=== PATIENT | female | born 2000 | race Hispanic/Latino ===

== ENCOUNTER 2024-04-29 20:00 | Inpatient (IN) | payer BC ==
[2024-04-29 21:00] VITALS: BMI 51.7
[2024-04-29] MEDS ORDERED: HYDROcodone/Acetaminophen 5/325 mg Tablet PO PRN ×2 (21:00)
[2024-04-29] MEDS ORDERED: Lidocaine 1% (PF) 30 ML VIAL SC PRN (21:00)
[2024-04-29] MEDS ORDERED: fentaNYL 50 mcg/mL 1 mL Vial SLOW IVP PRN (21:00)
[2024-04-29] MEDS ORDERED: Promethazine HCl 25 MG/ML VIAL IM PRN (21:00)
[2024-04-29] MEDS ORDERED: Ondansetron PF 4 MG/2 ML Vial IVP PRN (21:00)
[2024-04-29] MEDS ORDERED: Misoprostol 100 MCG TAB VAG SCH (21:00)
[2024-04-29] MEDS ORDERED: Oxytocin 30 units/NS 500 ML 500 ML IV SCH ×3 (21:00)
[2024-04-29] MEDS ORDERED: Ibuprofen 800 MG TAB PO PRN (21:00)
[2024-04-29 21:52] LABS: Hematocrit 31.7 % (34.9-44.5); Hemoglobin 10.9 g/dL (12.0-15.5); Mean Corpuscular HGB CONC 34.4 g/dL (32.0-36.0); Mean Corpuscular Hemoglobin 28.8 pg (27.0-33.0); Mean Corpuscular Volume 83.6 fL (81.6-98.3); Mean Platelet Volume 10.6 fL (7.4-10.4); Platelet Count 331 10x3/uL (150-450); RBC Distribution Width 17.1 % (11.5-14.5); Red Blood Cell (RBC) Count 3.79 10x6/uL (3.90-5.03); White Blood Cell (WBC) Count 12.4 10x3/uL (3.5-10.5)
[2024-04-29 22:22] LABS: Syphilis Antibody Nonreactive (Nonreactive); Syphilis Antibody Index 0.02 S/CO (<1.00 Non-Reactive)
[2024-04-29 22:23] LABS: HBsAg Index 0.25 S/CO (0-0.99); Hep B Surf Ag - L&D Non-Reactive S/CO (NonReactive)
[2024-04-29 22:47] LABS: ALT (SGPT) 7 U/L (8-55); AST (SGOT) 7 U/L (5-34); Albumin Less than 1.0 g/dL (3.5-5.0); Alkaline Phosphatase 113 U/L (40-110); Anion Gap 11 mmol/L (10-20); BUN (Urea Nitrogen) 7 mg/dL (7.0-18.7); Bilirubin, Total Less than 0.2 mg/dL (0.2-1.2); Calc. Creatinine Clearance 374 mL/min (70-130); Calcium 7.9 mg/dL (7.8-10.44); Carbon Dioxide 21 mmol/L (22-29); Chloride 105 mmol/L (98-107); Estimated GFR 131; Glucose 87 mg/dL (70-105); Potassium 3.5 mmol/L (3.5-5.1); Sodium 133 mmol/L (136-145)
[2024-04-30] MEDS: Misoprostol 100 MCG TAB VAG SCH (07:40)
[2024-04-30] MEDS: hydrALAZINE 20 MG/ML VIAL SLOW IVP PRN ×2 (09:24→10:06)
[2024-04-30] MEDS ORDERED: Calcium Gluc 4.6 MEQ/10 ML (100 MG/ML) SLOW IVP PRN (09:49)
[2024-04-30] MEDS ORDERED: hydrALAZINE 20 MG/ML VIAL SLOW IVP PRN ×2 (09:49→17:13)
[2024-04-30] MEDS ORDERED: Lorazepam 2 MG/ML VIAL SLOW IVP PRN (09:49)
[2024-04-30] MEDS: Lactated Ringer's 1,000 ML IV SCH (09:50)
[2024-04-30] MEDS: Magnesium Sulfate 20 gm/500 ml 20 GM/500 ML BAG IVPB SCH (09:50)
[2024-04-30] MEDS: Labetalol HCl 100 MG/20 ML VIAL SLOW IVP PRN ×2 (11:07→14:13)
[2024-04-30] MEDS ORDERED: Bicitra 30 ML UDCUP PO PRN (14:47)
[2024-04-30] MEDS: CEFAZOLIN 3 GM in Sodium Chloride 0.9% 100 ML IVPB SCH (15:26)
[2024-04-30] MEDS: Famotidine/PF 20 mg/2ml Vial SLOW IVP PRN (15:26)
[2024-04-30] MEDS ORDERED: Ondansetron PF 4 MG/2 ML Vial IVP PRN ×3 (17:13→17:32)
[2024-04-30] MEDS ORDERED: Lanolin Ointment 7 GM TUBE TOP PRN (17:13)
[2024-04-30] MEDS ORDERED: diphenhydrAMINE 25 MG CAP PO PRN (17:13)
[2024-04-30] MEDS ORDERED: HYDROcodone/Acetaminophen 5/325 mg Tablet PO PRN ×2 (17:13)
[2024-04-30] MEDS ORDERED: Bisacodyl 10 MG SUPP PR PRN (17:13)
[2024-04-30] MEDS ORDERED: Simethicone Chewable 80 MG TAB PO PRN (17:13)
[2024-04-30] MEDS ORDERED: Acetaminophen 325 MG TAB PO PRN (17:13)
[2024-04-30] MEDS ORDERED: Zolpidem Tartrate 5 MG TAB PO PRN (17:13)
[2024-04-30] MEDS ORDERED: Oxytocin 30 units/NS 500 ML 500 ML IV SCH (17:15)
[2024-04-30] MEDS ORDERED: Morphine 4 MG/ML VIAL SLOW IVP PRN (17:32)
[2024-04-30] MEDS ORDERED: Meperidine HCl/PF 25 MG (1 mL) VIAL SLOW IVP PRN (17:32)
[2024-04-30] MEDS ORDERED: Moisturizing Cream (Eucerin) 113 GM JAR TOP PRN (17:32)
[2024-04-30] MEDS ORDERED: Promethazine HCl 25 MG/ML VIAL IM PRN (17:32)
[2024-04-30] MEDS ORDERED: fentaNYL 50 mcg/mL 1 mL Vial SLOW IVP PRN (17:32)
[2024-04-30] MEDS ORDERED: Naloxone HCl 0.4 mg/ml Vial IV PRN (17:32)
[2024-04-30] MEDS ORDERED: diphenhydrAMINE 50 MG/ML VIAL IVP PRN (17:32)
[2024-04-30] MEDS ORDERED: Naloxone HCl 0.4 mg/ml Vial IVP PRN ×2 (17:32)
[2024-04-30] MEDS ORDERED: Communication Order-Pharmacy FS SCH (17:45)
[2024-05-01] MEDS: Docusate 100 MG CAP PO SCH ×2 (00:07→20:05)
[2024-05-01] MEDS: Ferrous Sulfate 325 MG TAB PO SCH ×2 (00:07→20:45)
[2024-05-01] MEDS: Morphine 4 MG/ML VIAL SLOW IVP PRN (01:05)
[2024-05-01 04:31] LABS: Hematocrit 29.4 % (34.9-44.5); Hemoglobin 9.6 g/dL (12.0-15.5); Mean Corpuscular HGB CONC 32.7 g/dL (32.0-36.0); Mean Corpuscular Hemoglobin 28.1 pg (27.0-33.0); Mean Platelet Volume 10.2 fL (7.4-10.4); Platelet Count 282 10x3/uL (150-450); RBC Distribution Width 17.1 % (11.5-14.5); Red Blood Cell (RBC) Count 3.42 10x6/uL (3.90-5.03); White Blood Cell (WBC) Count 11.9 10x3/uL (3.5-10.5)
[2024-05-01 04:52] LABS: ALT (SGPT) 10 U/L (8-55); AST (SGOT) 9 U/L (5-34); Albumin Less than 1.0 g/dL (3.5-5.0); Alkaline Phosphatase 109 U/L (40-110); Anion Gap 11 mmol/L (10-20); BUN (Urea Nitrogen) 6 mg/dL (7.0-18.7); Bilirubin, Total Less than 0.2 mg/dL (0.2-1.2); Calc. Creatinine Clearance 435 mL/min (70-130); Calcium 7.8 mg/dL (7.8-10.44); Carbon Dioxide 19 mmol/L (22-29); Chloride 106 mmol/L (98-107); Estimated GFR 136; Glucose 112 mg/dL (70-105); Potassium 3.7 mmol/L (3.5-5.1); Protein, Total 4.5 g/dL (6.0-8.3); Sodium 132 mmol/L (136-145)
[2024-05-01] MEDS ORDERED: HYDROcodone/Acetaminophen 5/325 mg Tablet PO PRN ×2 (05:45→17:38)
[2024-05-01] MEDS ORDERED: Ibuprofen 800 MG TAB PO SCH (06:00)
[2024-05-01] MEDS: Enoxaparin 40 MG (0.4 mL) SYRINGE SC SCH (06:35)
[2024-05-01] MEDS: Furosemide 20 MG TAB PO SCH (09:01)
[2024-05-01] MEDS: Prenatal Vitamin 1 TAB PO SCH (09:01)
[2024-05-01] MEDS: NIFEdipine XL 30 MG ER.TAB PO SCH (09:10)
[2024-05-01] MEDS: Dexamethasone 10 MG/ML VIAL ONE (11:00)
[2024-05-01] MEDS: Ondansetron PF 4 MG/2 ML Vial ONE (11:01)
[2024-05-01] MEDS: Morphine PF 10 MG/10 ML VIAL ONE (11:01)
[2024-05-01] MEDS: Oxytocin 10 UNITS/ML VIAL ONE ×2 (11:01→11:03)
[2024-05-01] MEDS: Promethazine HCl 25 MG/ML VIAL ONE (11:01)
[2024-05-01] MEDS: Carboprost 250 MCG/ML AMP ONE (11:02)
[2024-05-01] MEDS: Erythromycin Base 0.5% Oint 1 GM TUBE ONE (11:02)
[2024-05-01] MEDS: Misoprostol 200 MCG TAB ONE (11:02)
[2024-05-01] MEDS: Phytonadione Neonatal 1 MG/0.5 ML AMP ONE (11:02)
[2024-05-01] MEDS: Tranexamic Acid 1,000 MG/10 ML VIAL ONE (11:02)
[2024-05-01] MEDS: Dexmedetomidine 200 MCG/2 ML VIAL ONE ×2 (11:02→11:04)
[2024-05-01] MEDS: Metoclopramide HCl 10 MG (2 mL) VIAL ONE (11:03)
[2024-05-01] MEDS: ePHEDrine Sulfate 50 MG/10 ML VIAL ONE (11:03)
[2024-05-01] MEDS: Fentanyl 250 MCG/5 ML VIAL ONE (11:03)
[2024-05-01] MEDS: PHENYLEPHRINE-NS 100 MCG/ML 10 ML SYRINGE ONE (11:04)
[2024-05-01] MEDS: PROPOFOL 0 ML ONE (11:04)
[2024-05-01] MEDS: fentaNYL 50 mcg/mL 1 mL Vial ONE (11:04)
[2024-05-01] MEDS: HYDROcodone/Acetaminophen 5/325 mg Tablet PO PRN ×2 (13:44→20:10)
[2024-05-01] MEDS ORDERED: hydrALAZINE 20 MG/ML VIAL SLOW IVP PRN (17:38)
[2024-05-01] MEDS ORDERED: Bisacodyl 10 MG SUPP PR PRN (17:38)
[2024-05-01] MEDS ORDERED: Boostrix 0.5 ML (Tdap) VIAL (>/=7 yrs of age) IM ONE (17:38)
[2024-05-01] MEDS ORDERED: diphenhydrAMINE 25 MG CAP PO PRN (17:38)
[2024-05-01] MEDS ORDERED: Acetaminophen 325 MG TAB PO PRN (17:38)
[2024-05-01] MEDS ORDERED: Promethazine HCl 25 MG/ML VIAL IM PRN (17:38)
[2024-05-01] MEDS ORDERED: Lanolin Ointment 7 GM TUBE TOP PRN (17:38)
[2024-05-01] MEDS ORDERED: Ondansetron PF 4 MG/2 ML Vial IVP PRN (17:38)
[2024-05-01] MEDS: Ibuprofen 800 MG TAB PO SCH (20:05)
[2024-05-01] MEDS: Simethicone Chewable 80 MG TAB PO PRN (20:18)
[2024-05-02] MEDS ORDERED: Ibuprofen 800 MG TAB PO SCH (02:00)
[2024-05-02] MEDS: Ibuprofen 800 MG TAB PO SCH (04:37)
[2024-05-02] MEDS: Prenatal Vitamin 1 TAB PO SCH (08:31)
[2024-05-02] MEDS: Enoxaparin 40 MG (0.4 mL) SYRINGE SC SCH (08:31)
[2024-05-02] MEDS ORDERED: Enoxaparin 40 MG (0.4 mL) SYRINGE SC SCH (09:00)
[2024-05-02] MEDS: Magnesium Sulfate 20 gm/500 ml 20 GM/500 ML BAG ONE (19:32)
[2024-05-02] MEDS: Hepatitis B Vaccine 10 MCG/0.5 ML SYR ONE (19:32)
[2024-05-02] MEDS: Misoprostol 100 MCG TAB ONE (19:35)
[2024-05-02] MEDS: Boostrix 0.5 ML (Tdap) VIAL (>/=7 yrs of age) IM ONE (19:36)
[2024-05-03 08:02] VITALS: BP 131/71; TEMP 97.8
[2024-05-03] MEDS: NIFEdipine XL 30 MG ER.TAB PO SCH (08:45)
== END 2024-05-03 12:10 | disposition home or self-care (01) | DRG 787 ==
LOC: CSHLD 20:00 → CSHPP 05-01 18:34
PROVIDERS: ADMIT Obstetrics & Gynecology; ATTEND Obstetrics & Gynecology
PROC: 10D00Z1 Extraction of Products of Conception, Low, Open Approach (ICD-10-PCS; principal; 2024-04-30)
DX: O41.03X0 Oligohydramnios, third trimester, not applicable or unspecified (principal); N04.9 Nephrotic syndrome with unspecified morphologic changes; R18.8 Other ascites; Z3A.36 36 weeks gestation of pregnancy; Z37.0 Single live birth; O99.214 Obesity complicating childbirth; O13.4 Gestational [pregnancy-induced] hypertension without significant proteinuria, complicating childbirth; Z79.899 Other long term (current) drug therapy; Z79.01 Long term (current) use of anticoagulants; O99.892 Other specified diseases and conditions complicating childbirth; E66.01 Morbid (severe) obesity due to excess calories
CPT/HCPCS: 36415; 51702; 80053; 85027; 86780; 86850; 86900; 86901; 87340; 88307; J0360; J1100; J1650; J2272; J2274; J2405; J2550; J2590; J2704; J2765; J3010; J3475; J3490; J7120

== ENCOUNTER 2024-06-10 23:25 | Inpatient (IN) | payer BC ==
[2024-06-11 00:08] LABS: #Basophils 0.04 10x3/uL (0.0-0.2); #Eosinophils 0.19 10x3/uL (0.0-0.5); #Monocytes 0.33 10x3/uL (0.0-1.1); #Neutrophils 10.86 10x3/uL (1.5-8.4); %Basophils 0.3 % (0.0-2.0); %Eosinophils 1.4 % (0.0-6.0); %Lymphocytes 17.2 % (18.0-47.0); %Monocytes 2.4 % (0.0-10.0); %Neutrophils 78.4 % (40.0-75.0); Hematocrit 37.2 % (34.9-44.5); Hemoglobin 11.7 g/dL (12.0-15.5); Mean Corpuscular HGB CONC 31.5 g/dL (32.0-36.0); Mean Corpuscular Hemoglobin 27.4 pg (27.0-33.0); Mean Corpuscular Volume 87.1 fL (81.6-98.3); Mean Platelet Volume 10.4 fL (7.4-10.4); Platelet Count 436 10x3/uL (150-450); RBC Distribution Width 14.6 % (11.5-14.5); Red Blood Cell (RBC) Count 4.27 10x6/uL (3.90-5.03); White Blood Cell (WBC) Count 13.8 10x3/uL (3.5-10.5)
[2024-06-11] MEDS ORDERED: Milk Of Magnesia 30 ML UDCUP ONE (00:09)
[2024-06-11 00:21] LABS: ALT (SGPT) 18 U/L (8-55); AST (SGOT) 41 U/L (5-34); Albumin 1.3 g/dL (3.5-5.0); Alkaline Phosphatase 209 U/L (40-110); Anion Gap 15 mmol/L (10-20); BUN (Urea Nitrogen) 10 mg/dL (7.0-18.7); Bilirubin, Total 0.2 mg/dL (0.2-1.2); Calc. Creatinine Clearance 0 mL/min (70-130); Calcium 8.5 mg/dL (7.8-10.44); Carbon Dioxide 21 mmol/L (22-29); Chloride 103 mmol/L (98-107); Estimated GFR 132; Globulin 4.3 g/dL (2.4-3.5); Glucose 118 mg/dL (70-105); Lipase 829 U/L (8-78); Potassium 3.7 mmol/L (3.5-5.1); Protein, Total 5.6 g/dL (6.0-8.3); Sodium 135 mmol/L (136-145)
[2024-06-11 00:24] LABS: Troponin I Less than 0.010 ng/mL (< 0.028)
[2024-06-11 01:02] LABS: BHCG - Serum Negative (NEGATIVE); Pregs Control Background? CLEAR/WHITE (CLR/WHITE); Pregs Control Bar Appear? YES (CONTROL BAR)
[2024-06-11] MEDS ORDERED: Morphine 2 MG/ML VIAL SLOW IVP PRN (03:15)
[2024-06-11] MEDS ORDERED: Morphine 4 MG/ML VIAL SLOW IVP PRN (03:15)
[2024-06-11] MEDS ORDERED: Ondansetron ODT 4 MG TAB PO PRN (03:15)
[2024-06-11] MEDS ORDERED: Ondansetron PF 4 MG/2 ML Vial IVP PRN (03:15)
[2024-06-11 03:34] VITALS: BMI 41.0
[2024-06-11 05:03] LABS: #Basophils 0.02 10x3/uL (0.0-0.2); #Eosinophils 0.12 10x3/uL (0.0-0.5); #Monocytes 0.47 10x3/uL (0.0-1.1); #Neutrophils 8.34 10x3/uL (1.5-8.4); %Basophils 0.2 % (0.0-2.0); %Lymphocytes 23.1 % (18.0-47.0); %Neutrophils 71.4 % (40.0-75.0); Hematocrit 30.6 % (34.9-44.5); Hemoglobin 9.5 g/dL (12.0-15.5); Mean Corpuscular Hemoglobin 27.1 pg (27.0-33.0); Mean Corpuscular Volume 87.2 fL (81.6-98.3); Mean Platelet Volume 10.2 fL (7.4-10.4); Platelet Count 368 10x3/uL (150-450); RBC Distribution Width 14.7 % (11.5-14.5); Red Blood Cell (RBC) Count 3.51 10x6/uL (3.90-5.03); White Blood Cell (WBC) Count 11.7 10x3/uL (3.5-10.5)
[2024-06-11 05:15] LABS: ALT (SGPT) 28 U/L (8-55); AST (SGOT) 70 U/L (5-34); Alkaline Phosphatase 246 U/L (40-110); Anion Gap 13 mmol/L (10-20); BUN (Urea Nitrogen) 8 mg/dL (7.0-18.7); Bilirubin, Total 0.2 mg/dL (0.2-1.2); Calc. Creatinine Clearance 302 mL/min (70-130); Calcium 8.2 mg/dL (7.8-10.44); Carbon Dioxide 22 mmol/L (22-29); Cardiac Risk 11.4 (Less than 4.5); Chloride 104 mmol/L (98-107); Cholesterol 538 mg/dl (< 200 Desired); Estimated GFR 131; Glucose 114 mg/dL (70-105); HDL Cholesterol 47 mg/dL (>60 Neg Risk); Lipase 415 U/L (8-78); Potassium 3.6 mmol/L (3.5-5.1); Sodium 135 mmol/L (136-145); Triglycerides 522 mg/dL (Less than 150)
[2024-06-11] MEDS: Potassium Chloride 20 MEQ in Lactated Ringer's 1,000 ML IV SCH ×2 (05:26→08:02)
[2024-06-11] MEDS ORDERED: Potassium Chloride 20 MEQ in Lactated Ringer's 1,000 ML IV SCH (08:40)
[2024-06-11] MEDS: Enoxaparin 40 MG (0.4 mL) SYRINGE SC SCH (10:03)
[2024-06-11] MEDS: Fenofibrate 48 MG TAB PO SCH (11:09)
[2024-06-11 11:58] LABS: Bilirubin Neg (Negative); Blood, Urine Negative (Negative); Clarity Clear (Clear); Glucose, Urine (Dipstick) Normal (Negative); Ketone, Urine Negative (Negative); Leukocyte Negative (Negative); Nitrite Negative (Negative); Protein, Urine (Dipstick) 500 mg/dl (Neg-Trace); Urobilinogen Normal mg/dL (Less than 2)
[2024-06-11 12:19] LABS: RBC/HPF 0-3 HPF (0-3); WBC/HPF None Seen HPF (0-3)
[2024-06-11 12:21] LABS: Bacteria/HPF Rare-Few HPF (None Seen)
[2024-06-11 13:19] VITALS: BP 114/72; TEMP 96.8
[2024-06-12] MEDS ORDERED: FLU (Fluarix Triv) TS24-25(6MOS UP)/PF 45 MCG/0.5 ML Syringe IM ONE (09:00)
== END 2024-06-11 15:03 | disposition home or self-care (01) | DRG 776 ==
LOC: CSHERS 23:25 → OBSVTOIN 06-11 03:18 → CSHTELE 06-11 03:18
PROVIDERS: ADMIT Family Medicine; ATTEND Internal Medicine
DX: O99.63 Diseases of the digestive system complicating the puerperium (principal); K85.90 Acute pancreatitis without necrosis or infection, unspecified; Z83.3 Family history of diabetes mellitus; I10 Essential (primary) hypertension; Z79.899 Other long term (current) drug therapy; K80.20 Calculus of gallbladder without cholecystitis without obstruction; E78.00 Pure hypercholesterolemia, unspecified; O90.81 Anemia of the puerperium
CPT/HCPCS: 36415; 71045; 76705; 80048; 80053; 80061; 81001; 82247; 83690; 83735; 84075; 84450; 84460; 84484; 84702; 84703; 85025; 93005; 93010; J1650; J3480; J7120